=== PATIENT | male | born 1960 | race Two or more races ===

== ENCOUNTER → 2021-11-24 | Outpatient (CLI) | payer MEDICAID, OTHER ==
--- NOTE | 2021-11-24 13:20 | REP ---
INDICATION: GROIN JEAN PAIN ? HERNIA COMPARISON: None. TECHNIQUE: Limited grayscale ultrasound examination using linear high-frequency transducer. FINDINGS: Ultrasound examination of the right groin demonstrates a small fat containing hernia identified on Valsalva with a peritoneal defect of 18 mm and naturally reduces at rest. Ultrasound examination of the left groin demonstrates no evidence for hernia. IMPRESSION: Small Candace reducible fat containing right inguinal hernia. <Electronically signed by Darin Orozco > 11/24/21 1156
== END ==
LOC: M RAD 12:17
PROVIDERS: ATTEND Pediatrics
DX: K40.31 Unilateral inguinal hernia, with obstruction, without gangrene, recurrent (principal)

== ENCOUNTER → 2022-03-23 | Outpatient (CLI) | payer OTHER ==
[~2022-03-23] MED LIST: AMLO1TAB24; ATOR1TAB21
== END ==
LOC: M LABSMTC 09:36
PROVIDERS: ATTEND Anesthesiology
DX: Z01.812 Encounter for preprocedural laboratory examination (principal); Z20.822 Contact with and (suspected) exposure to COVID-19

== ENCOUNTER → 2022-03-24 | Outpatient (CLI) | payer OTHER ==
[2022-03-24 14:26] LABS: HEMATOCRIT 46.2 % (42.0-52.0); MEAN CORPUSCULAR HEMOGLOBIN 30.2 pg (27.0-33.0); MEAN CORPUSCULAR HGB CONC 34.6 g/dl (32.0-36.5); MEAN CORPUSCULAR VOLUME 87.2 fl (80.0-96.0); PLATELET COUNT, AUTOMATED 230 10^3/uL (150-450); WHITE BLOOD COUNT 6.8 10^3/uL (4.0-10.0)
[2022-03-24 14:50] LABS: BLOOD UREA NITROGEN 13 MG/DL (7-18); CALCIUM LEVEL 9.5 MG/DL (8.8-10.2); CARBON DIOXIDE LEVEL 30 MEQ/L (21-32); CHLORIDE LEVEL 108 MEQ/L (98-107); CREATININE FOR GFR 1.14 MG/DL (0.70-1.30); GLOMERULAR FILTRATION RATE > 60.0 (>49); GLUCOSE, FASTING 87 MG/DL (70-100); POTASSIUM SERUM 3.9 MEQ/L (3.5-5.1); SODIUM LEVEL 142 MEQ/L (136-145)
== END ==
LOC: M EKG 13:32
PROVIDERS: ATTEND Internal Medicine
DX: Z01.818 Encounter for other preprocedural examination (principal); R03.0 Elevated blood-pressure reading, without diagnosis of hypertension; E78.00 Pure hypercholesterolemia, unspecified

== ENCOUNTER 2022-03-28 08:04 | Day surgery (SDC) | payer OTHER ==
[~2022-03-28] VITALS: Ht 180.3 cm; Wt 83.5 kg
[~2022-03-28 08:04] MED LIST changes: +LIDOCAINE 1% MDV 20ML VIAL SQ PRN; +LR 1,000 ML IV ONE; +ceFAZolin SOD 2 GM in IV 1 EA IV ONE
[2022-03-28] MEDS ORDERED: propofoL 200 MG/20 ML VIAL As Ordered ONE (08:09)
[2022-03-28] MEDS ORDERED: LIDOCAINE 2% 100MG/5ML SDV (FOR ANES.) As Ordered ONE (08:09)
[2022-03-28] MEDS ORDERED: ROCURONIUM BROMIDE 50 MG/5 ML VIAL As Ordered ONE (08:09)
[2022-03-28] MEDS ORDERED: MIDAZOLAM INJ 2MG/2ML VIAL (J2250 PER 1MG) As Ordered ONE (08:09)
[2022-03-28] MEDS ORDERED: fentaNYL 250 MCG/5 ML INJECTION As Ordered ONE (08:09)
[2022-03-28] MEDS ORDERED: BUPIVACAINE/EPIN 0.25% 30 ML VIAL As Ordered ONE (11:14)
[2022-03-28] MEDS ORDERED: LACRILUBE (AKWA TEARS) OPHTH OINT 3.5 GM As Ordered ONE (11:41)
[2022-03-28] MEDS ORDERED: LABETALOL 100MG/20ML VIAL As Ordered ONE (11:56)
[2022-03-28] MEDS ORDERED: ACETAMINOPHEN 1000MG 100ML IV BTL (OFIRMEV) (J0131 PER 10MG) As Ordered ONE (12:07)
[2022-03-28] MEDS ORDERED: ONDANSETRON 4MG/2ML VIAL As Ordered ONE (12:07)
[2022-03-28] MEDS ORDERED: dexameTHASONE 4 MG/ML 1ML VIAL (J1100 PER 1MG) As Ordered ONE (12:07)
[2022-03-28] MEDS ORDERED: SUGAMMADEX SODIUM 500 MG/5 ML VIAL (BRIDION) As Ordered ONE ×2 (12:07→12:08)
[2022-03-28] MEDS ORDERED: KETOROLAC 60MG 2ML VIAL As Ordered ONE (12:07)
[2022-03-28] MEDS ORDERED: NORCO, ANEXSIA 5/325MG TABLET (HYDROcodone/ACETAMINOPHEN) PO PRN (13:00)
[2022-03-28] MEDS ORDERED: ONDANSETRON 4MG/2ML VIAL IV PRN (13:00)
[2022-03-28] MEDS ORDERED: oxyCODONE 5MG TAB PO PRN (13:00)
[2022-03-28] MEDS ORDERED: fentaNYL 100 MCG/2 ML INJECTION IV PRN (13:00)
[2022-03-28] MEDS ORDERED: HYDROMORPHONE HCL 0.5 MG/ 0.5 ML SYRINGE (J1170 PER 1) IV PRN (13:00)
[2022-03-28] MEDS ORDERED: LR 1,000 ML IV SCH (13:00)
[2022-03-28 14:35] VITALS: BP 118/74
== END 2022-03-28 15:12 | disposition home or self-care (01) ==
LOC: M SDC 08:04
PROVIDERS: ATTEND Surgery
DX: K40.90 Unilateral inguinal hernia, without obstruction or gangrene, not specified as recurrent (principal); I10 Essential (primary) hypertension; E78.5 Hyperlipidemia, unspecified; K21.9 Gastro-esophageal reflux disease without esophagitis; Z79.899 Other long term (current) drug therapy
CPT/HCPCS: 49650; C1781; J0131; J0690; J1100; J1885; J2250; J2405; J3010; S2900

== ENCOUNTER 2022-06-12 15:11 | Emergency (ER) | payer MEDICAID, OTHER ==
[~2022-06-12] VITALS: Ht 180.3 cm; Wt 85.5 kg
[~2022-06-12 15:11] MED LIST changes: -LIDOCAINE 1% MDV 20ML VIAL SQ PRN; -LR 1,000 ML IV ONE; -ceFAZolin SOD 2 GM in IV 1 EA IV ONE
[2022-06-12 16:57] LABS: BASO # 0.1 10^3/uL (0.0-0.2); BASO % 0.5 % (0.0-1.0); EOS # 0.4 10^3/uL (0.0-0.5); EOS % 4.1 % (0.0-3.0); HEMATOCRIT 46.8 % (42.0-52.0); HEMOGLOBIN 16.2 g/dl (13.5-17.5); LYMPH # 2.2 10^3/uL (1.5-5.0); LYMPH % 22.3 % (24.0-44.0); MEAN CORPUSCULAR HEMOGLOBIN 30.5 pg (27.0-33.0); MEAN CORPUSCULAR HGB CONC 34.6 g/dl (32.0-36.5); MONO # 0.8 10^3/uL (0.0-0.8); NEUTROPHILS # 6.4 10^3/uL (1.5-8.5); NEUTROPHILS % 64.8 % (36.0-66.0); PLATELET COUNT, AUTOMATED 204 10^3/uL (150-450); RED BLOOD COUNT 5.32 10^6/uL (4.30-6.10); WHITE BLOOD COUNT 9.9 10^3/uL (4.0-10.0)
[2022-06-12 17:15] LABS: ERYTHROCYTE SEDIMENTATION RATE 4 mm/hr (0-20)
[2022-06-12 17:23] LABS: BLOOD UREA NITROGEN 13 MG/DL (7-18); CALCIUM LEVEL 8.9 MG/DL (8.8-10.2); CARBON DIOXIDE LEVEL 27 MEQ/L (21-32); CHLORIDE LEVEL 109 MEQ/L (98-107); CREATININE FOR GFR 1.25 MG/DL (0.70-1.30); GLOMERULAR FILTRATION RATE > 60.0 (>49); GLUCOSE, FASTING 88 MG/DL (70-100); POTASSIUM SERUM 3.9 MEQ/L (3.5-5.1); SODIUM LEVEL 143 MEQ/L (136-145); URIC ACID 7.1 MG/DL (3.5-7.2)
[2022-06-12] MEDS ORDERED: HYDR25OIN TOP (17:50)
[2022-06-12 17:57] VITALS: BP 150/96
== END 2022-06-12 18:09 | disposition home or self-care (01) ==
LOC: M ED 15:11
DX: S90.561A Insect bite (nonvenomous), right ankle, initial encounter (principal); I10 Essential (primary) hypertension; Z79.899 Other long term (current) drug therapy

== ENCOUNTER → 2022-12-30 | Outpatient (REF) | payer OTHER ==
[~2022-12-30] MED LIST changes: +HYDR25OIN TOP
[2022-12-30 17:13] LABS: CHOLESTEROL RISK RATIO 3.42 (<5); HDL CHOLESTEROL 45.3 MG/DL (>40); LDL CHOLESTEROL 84.7 MG/DL (<100); THYROID STIMULATING HORMONE 1.429 uIU/ML (0.55-4.78)
== END ==
LOC: M LAB REF 16:12
PROVIDERS: ATTEND Pediatrics
DX: E78.5 Hyperlipidemia, unspecified (principal)

== ENCOUNTER → 2023-01-16 | Outpatient (CLI) | payer OTHER | LOC: M RAD 12:38 | PROVIDERS: ATTEND Pediatrics | DX: R55 Syncope and collapse (principal); I65.23 Occlusion and stenosis of bilateral carotid arteries ==

== ENCOUNTER → 2023-08-11 | Outpatient (REF) | payer OTHER, MEDICARE ==
[2023-08-11 17:42] LABS: ALKALINE PHOSPHATASE 124 U/L (46-116); ALT/SGPT 21 U/L (7.0-40); AST/SGOT 11 U/L (<34); BILIRUBIN,TOTAL 0.8 MG/DL (0.3-1.2); BLOOD UREA NITROGEN 11 MG/DL (9-23); CALCIUM LEVEL 9.3 MG/DL (8.3-10.6); CARBON DIOXIDE LEVEL 28 MMOL/L (20-31); CHLORIDE LEVEL 106 MMOL/L (98-107); CHOLESTEROL LEVEL 142 MG/DL (<200); CHOLESTEROL RISK RATIO 3.33 (<5); CREATININE FOR GFR 0.97 MG/DL (0.70-1.30); GLOMERULAR FILTRATION RATE > 60.0 (>49); GLUCOSE, FASTING 96 MG/DL (74-106); HDL CHOLESTEROL 42.6 MG/DL (>40); LDL CHOLESTEROL 66.8 MG/DL (<100); NON-HDL-C 99.4 MG/DL; POTASSIUM SERUM 3.7 MMOL/L (3.5-5.1); SODIUM LEVEL 142 MMOL/L (136-145); TOTAL PROTEIN 6.8 G/DL (5.7-8.2); TRIGLYCERIDES LEVEL 163 MG/DL (<150)
[2023-08-11 17:43] LABS: THYROID STIMULATING HORMONE 1.461 uIU/ML (0.55-4.78)
== END ==
LOC: M LAB REF 16:20
PROVIDERS: ATTEND Pediatrics
DX: E78.5 Hyperlipidemia, unspecified (principal); Z12.5 Encounter for screening for malignant neoplasm of prostate

== ENCOUNTER → 2024-04-02 | Outpatient (REF) | payer MEDICARE | LOC: M LAB REF 16:14 | PROVIDERS: ATTEND Pediatrics | DX: F52.21 Male erectile disorder (principal) ==

== ENCOUNTER → 2025-06-17 | Outpatient (REF) | payer MEDICARE ==
[2025-06-17 14:23] LABS: CREATININE, URINE 167.6 MG/DL; MALB URINE SIEMENS 8.0 MG/L; MAU/CREAT RATIO 4.7 MCG/MG (0.0-30.0)
[2025-06-17 17:59] LABS: CALCIUM LEVEL 9.4 MG/DL (8.3-10.6); CARBON DIOXIDE LEVEL 30.0 MMOL/L (20-31); CHLORIDE LEVEL 103.0 MMOL/L (98-107); CHOLESTEROL LEVEL 151.0 MG/DL (<200); CHOLESTEROL RISK RATIO 3.0 (<5); CREATININE FOR GFR 0.96 MG/DL (0.70-1.30); GLOMERULAR FILTRATION RATE 87.2 (>49); LDL CHOLESTEROL 82.3 MG/DL (<100); NON-HDL-C 100.7 MG/DL; POTASSIUM SERUM 4.0 MMOL/L (3.5-5.1); PSA SCREENING 1.05 NG/ML (< 4.00); SODIUM LEVEL 145.0 MMOL/L (136-145); TRIGLYCERIDES LEVEL 92.0 MG/DL (<150)
== END ==
LOC: M LAB REF 13:21
PROVIDERS: ATTEND Pediatrics
DX: I10 Essential (primary) hypertension (principal); E78.5 Hyperlipidemia, unspecified; Z12.5 Encounter for screening for malignant neoplasm of prostate
CPT/HCPCS: 80048; 80061; 82043; 84443; G0103

== ENCOUNTER → 2025-07-10 | Outpatient (CLI) | payer MEDICARE | LOC: M RAD 16:46 | PROVIDERS: ATTEND Pediatrics | DX: M25.511 Pain in right shoulder (principal); M25.512 Pain in left shoulder; M19.90 Unspecified osteoarthritis, unspecified site ==

== ENCOUNTER 2025-09-18 15:15 | Outpatient (RCR) | payer MEDICARE | END 2025-09-26 | LOC: M PT 15:15 | PROVIDERS: ATTEND Physician Assistant | DX: F80.81 Childhood onset fluency disorder (principal); M25.511 Pain in right shoulder ==